=== PATIENT | female | born 1980 | race Two or more races ===

== ENCOUNTER 2017-02-26 16:38 | Emergency (ER) | payer MEDICAID ==
[~2017-02-26] VITALS: Ht 167.6 cm; Wt 71.4 kg
[2017-02-26 17:09] VITALS: BP 116/87
[2017-02-26] MEDS ORDERED: SILVER SULFADIAZINE 1 % TOPICAL CREAM 50GM TOP ONE (18:00)
== END 2017-02-26 18:08 | disposition home or self-care (01) ==
LOC: ER 16:42
DX: T24.011A Burn of unspecified degree of right thigh, initial encounter (principal); X19.XXXA Contact with other heat and hot substances, initial encounter; Y93.89 Activity, other specified; Y99.8 Other external cause status; Y92.89 Other specified places as the place of occurrence of the external cause; Z98.51 Tubal ligation status
CPT/HCPCS: 16000

== ENCOUNTER 2018-06-27 07:58 | Emergency (ER) | payer MEDICAID ==
[~2018-06-27] VITALS: Ht 170.2 cm; Wt 72.6 kg
[2018-06-27] MEDS ORDERED: SODIUM CHLORIDE 0.9% 1,000 ML IVB ONE (08:08)
[2018-06-27] MEDS ORDERED: ALUM & MAG HYDROX-SIMETH LIQ(MAALOX) 30 ML PO ONE (08:15)
[2018-06-27] MEDS ORDERED: NALBUPHINE HCL 10 MG/1ml INJECTION IV ONE (08:15)
[2018-06-27] MEDS ORDERED: DONNATAL 5ml ORAL Elix (BELLADONNA ALK-PHENOBARB) PO ONE (08:15)
[2018-06-27] MEDS ORDERED: LIDOCAINE VISCOUS 2% 15ML UD PO ONE (08:15)
[2018-06-27] MEDS ORDERED: ONDANSETRON HCL 4 MG/2 ML VIAL IV ONE (08:15)
[2018-06-27 08:34] LABS: Basophils # (auto) 0 uL; Basophils % (auto) 0.5 % (0.0-2.0); Eosinophils # (auto) 0.3 uL; Eosinophils % (auto) 3.9 % (0.0-7.0); Hematocrit 44.9 % (36.0-46.0); Lymphocytes # (auto) 1.7 uL; Lymphocytes % (auto) 22.7 % (10.0-50.0); Mean Corpuscular Hemoglobin 30.4 pg (28.0-32.0); Mean Corpuscular Hgb Conc. 33.4 g/dL (32.0-36.0); Mean Corpuscular Volume 90.8 fL (80.0-100.0); Monocytes # (auto) 0.7 uL; Neutrophils # (auto) 4.7 uL; Neutrophils % (auto) 63.9 % (37.0-80.0); Nucleated Red Blood Cells % 0.1 %; Platelet Count (auto) 188 10^3/uL (140-450); Red Blood Cells 4.94 10^6/uL (4.0-5.20); Red Cell Distribution Width 12.9 % (11.8-14.3); White Blood Cell 7.3 10^3/uL (4.4-10.8)
[2018-06-27 08:48] LABS: Albumin 3.6 g/dL (3.4-5.0); Calcium 8.4 mg/dL (8.5-10.1); Potassium 3.7 mmol/L (3.5-5.1)
[2018-06-27 08:50] LABS: INR 0.95 (0.9-1.15); Partial Thromboplastin Time 27.8 sec (23.78-33.04); Prothrombin Time 10.2 sec (9.27-12.13)
[2018-06-27 08:51] LABS: Bilirubin, Total 0.5 mg/dL (0.2-1.0); Total Protein 6.9 g/dL (6.4-8.2)
[2018-06-27 09:11] LABS: Urine Bacteria FEW /hpf (None Seen); Urine Blood TRACE /uL (Negative); Urine Mucus FEW (None Seen); Urine Specific Gravity 1.021 (1.001-1.035); Urine WBC 11 /hpf (0 - 5)
[2018-06-27 10:30] VITALS: BP 96/53
== END 2018-06-27 11:13 | disposition home or self-care (01) ==
LOC: EDBD 07:58 → ER 07:58
DX: K29.70 Gastritis, unspecified, without bleeding (principal); N39.0 Urinary tract infection, site not specified; J45.909 Unspecified asthma, uncomplicated; Z90.49 Acquired absence of other specified parts of digestive tract
CPT/HCPCS: 36415; 74176; 80053; 81001; 81025; 82150; 83690; 85025; 85610; 85730; 96361; 96374; 96375; 99285; J2300; J2405; J7030